=== PATIENT | male | born 1975 | race Caucasian/White ===

== ENCOUNTER 2019-06-05 09:25 | Outpatient (CLI) | payer OTHER ==
[~2019-06-05 09:25] MED LIST: OXYC-306 PO; PANT40TA3 PO
== END 2019-06-05 23:59 | disposition home or self-care (01) ==
LOC: PETCFH 09:25
PROVIDERS: ATTEND Internal Medicine Hematology & Oncology
DX: C81.90 Hodgkin lymphoma, unspecified, unspecified site (principal); R59.0 Localized enlarged lymph nodes; Z21 Asymptomatic human immunodeficiency virus [HIV] infection status
CPT/HCPCS: 78815; A9552

== ENCOUNTER 2019-06-10 10:04 | Inpatient (IN) | payer OTHER ==
[~2019-06-10] VITALS: Ht 175.3 cm; Wt 78.5 kg
[~2019-06-10 10:04] MED LIST changes: -ABAC1TAB14 PO; -AMOX1TAB12 PO; -CHLORHEXIDINE GLUCONATE MOUTHWASH 0.12%, 473ML MM SCH; -CHOL400T2 PO
[2019-06-10] MEDS ORDERED: ACETAMINOPHEN 500 MG TABLET ONE (10:14)
[2019-06-10] MEDS ORDERED: SODIUM CHLORIDE FLUSH 10ML SYR IVF ONE (10:30)
[2019-06-10] MEDS ORDERED: SODIUM CHLORIDE 0.9% 1,000ML IVBOLUS ONE ×2 (10:30→12:00)
[2019-06-10] MEDS ORDERED: ACETAMINOPHEN 500 MG TABLET PO ONE (10:30)
[2019-06-10 10:58] LABS: INTERNATIONAL NORMALIZED RATIO 1.1 (0.93-1.1); PROTHROMBIN TIME 11.5 Seconds (9.6-11.5)
[2019-06-10 10:59] LABS: ALANINE AMINOTRANSFERASE 232 U/L (12-78); ALBUMIN 2.8 g/dL (3.4-5.0); ANION GAP 5 mmol/L (5-15); CALCIUM 7.7 mg/dL (8.5-10.1); CHLORIDE 105 mmol/L (98-107); CREATININE 1.02 mg/dL (0.7-1.3)
[2019-06-10 11:02] LABS: ALKALINE PHOSPHATASE 334 U/L (45-117); BILIRUBIN,TOTAL 0.6 mg/dL (0.2-1.0)
[2019-06-10 11:06] LABS: MEAN CORPUSCULAR HEMOGLOBIN 30.9 pg (27.5-34.5); MEAN CORPUSCULAR HGB CONC 33.7 g/dL (33.2-36.2); MEAN CORPUSCULAR VOLUME 91.9 fL (81-97); MEAN PLATELET VOLUME 8.3 fL (7.4-10.4); PLATELET COUNT 99 x10^3/uL (130-400); RED BLOOD COUNT 4.25 x10^6/uL (4.38-5.82); RED CELL DISTRIBUTION WIDTH 14.6 % (9.4-14.8)
--- NOTE | 2019-06-10 11:11 | NUR ---
Critical lab result received, wbc 1.5. dr. palmer notified. Pt denies any further needs or concerns at this time. Call light in reach.
[2019-06-10 11:25] LABS: MD YES
--- NOTE | 2019-06-10 11:32 | NUR ---
PT PLACED ON NEUTROPENIC PRECAUTIONS, ISO CART OUTSIDE OF ROOM, SIGN ON DOOR CLIP. PT RETURNED FROM IMAGING, MASK IN PLACE FOR TRANSPORT. DENIES ANY FURTHER NEEDS OR CONCERNS AT THIS TIME. CALL LIGHT IN REACH. FLUIDS CONTINUE INFUSING PER MAR.
[2019-06-10 11:35] LABS: <PLATELET ESTIMATE> DECREASED; <PLT MORPHOLOGY> NORMAL PLT MORPH; <RBC MORPHOLOGY> NORMAL; BAND#(MANUAL) 0.12 x10^3/uL; BANDS%(MANUAL) 8 % (0-7); LYMPH#(MANUAL) 0.23 x10^3/uL (1-3.4); LYMPHS% (MANUAL) 15 % (22-44); METAMYELOCYTES# (MANUAL) 0.02 x10^3/uL (0-0); METAMYELOCYTES% (MANUAL) 1 % (0-1); MONOS#(MANUAL) 0.27 x10^3/uL (0.3-2.7); MONOS% (MANUAL) 18 % (2-9); REACTIVE LYMPHS # (MANUAL) 0.05 x10^3/uL (0-0); REACTIVE LYMPHS % (MANUAL) 3 % (0-0); SEG#(MANUAL) 0.83 x10^3/uL (1.8-6.8); SEGS% (MANUAL) 55 % (42-75)
[2019-06-10] MEDS ORDERED: OMNIPAQUE 350 MG/ML, 75ML BOTTLE ONE (11:36)
--- NOTE | 2019-06-10 11:43 | NUR ---
PT CONTINUES TO DENY ANY S/S OF ILLNESS. BP DROPPING, ERP NOTIFIED. NEW ORDERS RECEIEVED. SECOND NS BOLUS HUNG ON PRESSURE BAG. CALL LIGHT IN REACH, PT ON ALL MONITORS. DENIES ANY NEEDS OR CONCERNS.
[2019-06-10] MEDS ORDERED: LACTATED RINGERS 1,000 ML IVBOLUS ONE ×2 (12:30→13:30)
--- NOTE | 2019-06-10 12:30 | NUR ---
PT RESTING IN BED, FAMILY AT BEDSIDE. CALL LIGHT IN REACH. URINAL AT BEDSIDE FOR URINE SAMPLE COLLECTION, PT AWARE OF NEED TO COLLECT, UNABLE TO URINATE AT THIS TIME. DENIES ANY FURTHER NEEDS OR CONCERNS AT THIS TIME.
[2019-06-10] MEDS ORDERED: PIPERACILLIN/TAZO/PMX 3.375GM 50 ML ONE (12:42)
[2019-06-10] MEDS ORDERED: VANCOMYCIN PER PHARMACY MC PRN ×2 (13:00→14:30)
[2019-06-10] MEDS ORDERED: PIPERACILLIN/TAZO/PMX 3.375GM 50 ML IV ONE (13:00)
[2019-06-10] MEDS ORDERED: VANCOMYCIN 1,600 MG in SODIUM CHLORIDE 0.9% 250 ML IV ONE (13:00)
--- NOTE | 2019-06-10 13:22 | NUR ---
BREAK RN: PT LAYING ON GURNEY AWAKE & COMFORTABLE, RESPONDS APPROP TO STAFF, NAD, NO NEEDS AT THIS TIME, US & SO AT BS, CALL LIGHT WITHIN REACH.
[2019-06-10 13:33] LABS: RAPID INFLUENZA A Negative (Negative); RAPID INFLUENZA B Negative (Negative)
[2019-06-10 13:37] LABS: MICROSCOPIC NOT IND
[2019-06-10 13:51] LABS: CULTURE INDICATED? NO
--- NOTE | 2019-06-10 13:51 | NUR ---
PT RESTING IN BED, FAMILY AT BEDSIDE. ERP AT BEDSIDE TO UPDATED PT ON PLAN OF CARE. ALL QUESTIONS ADDRESSED. PT DENIES ANY FUTHER NEEDS OR CONCERNS AT THIS TIME. CALL LIGHT IN REACH.
--- NOTE | 2019-06-10 14:22 | NUR ---
HOSPITALIST AT BEDSIDE. SECOND IV STARTED IN RAC. CALL LIGHT IN REACH. PT DENIES ANY FURTHER NEEDS OR CONCERNS AT THIS TIME.
[2019-06-10] MEDS: NICOTINE 7 MG/24 HR PATCH.TD24 TD SCH (14:30)
[2019-06-10] MEDS: NS + 20MEQ KCL 1,000 ML IV SCH (14:30)
[2019-06-10] MEDS ORDERED: hydrALAzine 20 MG/ML, 1ML IVPush PRN (14:30)
[2019-06-10] MEDS ORDERED: morphine SULFATE 10 MG/ML, 1ML IVPush PRN (14:30)
[2019-06-10] MEDS ORDERED: PROMETHAZINE 25 MG/ML, 1ML IM PRN (14:30)
[2019-06-10] MEDS ORDERED: OXYcodone IR 5MG TABLET PO PRN (14:30)
[2019-06-10] MEDS ORDERED: ONDANSETRON ODT 4 MG PO PRN (14:30)
[2019-06-10] MEDS ORDERED: KETOROLAC 30 MG/1 ML ONE (15:41)
[2019-06-10] MEDS: KETOROLAC 30 MG/1 ML IV PRN (15:41)
--- NOTE | 2019-06-10 15:45 | NUR ---
PT C/O HEADACHE 11/16. GIVEN TORADOL PER SEP. DENIES ANY FURTHER NEEDS OR CONCERNS AT THIS TIME. CALL LIGHT IN REACH. UPDATED ON PLAN OF CARE, VERBALIZES UNDERSTANDING.
[2019-06-10] MEDS ORDERED: NS + 20MEQ KCL 1,000 ML IV ONE (15:50)
--- NOTE | 2019-06-10 17:01 | NUR ---
PT CONTINUES RESTING IN BED. DENIES ANY NEEDS OR CONCERNS AT THIS TIME. CALL LIGHT IN REACH.
[2019-06-10] MEDS ORDERED: NICOTINE 7 MG/24 HR PATCH.TD24 ONE (17:08)
--- NOTE | 2019-06-10 17:33 | NUR ---
report from PIPE Reynaga. pt resting in room. vss. no needs expressed.
--- NOTE | 2019-06-10 17:45 | NUR ---
report to carol ,receiving rn.
[2019-06-10 18:20] VITALS: BP 124/73
[2019-06-10] MEDS ORDERED: VANCOMYCIN 1,500 MG in SODIUM CHLORIDE 0.9% 250 ML IV SCH (18:30)
[2019-06-10] MEDS: ACETAMINOPHEN 325 MG TABLET PO PRN ×2 (18:52→23:00)
[2019-06-10] MEDS ORDERED: PHARMACOKINETIC MONITORING MC PRN (19:00)
[2019-06-10] MEDS ORDERED: ABAC1TAB14 PO (20:39)
[2019-06-10] MEDS: ENOXAPARIN 40 MG/0.4 ML SQ SCH (20:44)
[2019-06-10 20:45] VITALS: BP 113/66
[2019-06-10] MEDS: PIPERACILLIN/TAZO/PMX 4.5GM 100 ML IV SCH (20:45)
[2019-06-10] MEDS ORDERED: MIRTAZAPINE 15 MG TABLET PO SCH (21:00)
[2019-06-10] MEDS ORDERED: [UNRECOGNIZED DRUG - OTHER] PO SCH (21:00)
[2019-06-10] MEDS: PANTOPROZOLE 40MG TABLET PO SCH (21:28)
[2019-06-10] MEDS: TRIUMEQ HOMEMEDPO SCH (21:29)
[2019-06-11] MEDS: NS + 20MEQ KCL 1,000 ML IV SCH ×3 (00:35→17:02)
[2019-06-11 01:50] VITALS: BP 111/79
[2019-06-11] MEDS ORDERED: VANCOMYCIN 1,500 MG in SODIUM CHLORIDE 0.9% 250 ML IV SCH (02:00)
[2019-06-11] MEDS: ACETAMINOPHEN 325 MG TABLET PO PRN ×3 (03:21→12:26)
[2019-06-11 05:05] LABS: MEAN CORPUSCULAR HEMOGLOBIN 31.2 pg (27.5-34.5); MEAN CORPUSCULAR HGB CONC 33.7 g/dL (33.2-36.2); MEAN CORPUSCULAR VOLUME 92.5 fL (81-97); MEAN PLATELET VOLUME 8.3 fL (7.4-10.4); PLATELET COUNT 93 x10^3/uL (130-400); RED BLOOD COUNT 3.65 x10^6/uL (4.38-5.82); RED CELL DISTRIBUTION WIDTH 14.2 % (9.4-14.8)
[2019-06-11 05:09] LABS: ALBUMIN 2.3 g/dL (3.4-5.0); ANION GAP 5 mmol/L (5-15); CHLORIDE 111 mmol/L (98-107)
[2019-06-11 05:14] LABS: ALANINE AMINOTRANSFERASE 200 U/L (12-78); ALKALINE PHOSPHATASE 283 U/L (45-117); BILIRUBIN,TOTAL 0.6 mg/dL (0.2-1.0); CALCIUM 7.3 mg/dL (8.5-10.1); CREATININE 0.94 mg/dL (0.7-1.3); TOTAL PROTEIN 5.1 g/dL (6.4-8.2)
[2019-06-11] MEDS: PIPERACILLIN/TAZO/PMX 4.5GM 100 ML IV SCH ×3 (05:42→21:12)
[2019-06-11] MEDS: PANTOPROZOLE 40MG TABLET PO SCH ×2 (05:42→16:24)
[2019-06-11 06:05] LABS: MD YES
[2019-06-11 06:08] LABS: BANDS%(MANUAL) 6 % (0-7); METAMYELOCYTES# (MANUAL) 0.02 x10^3/uL (0-0); METAMYELOCYTES% (MANUAL) 1 % (0-1); REACTIVE LYMPHS # (MANUAL) 0.05 x10^3/uL (0-0); REACTIVE LYMPHS % (MANUAL) 3 % (0-0)
[2019-06-11 06:09] LABS: LYMPH#(MANUAL) 0.45 x10^3/uL (1-3.4); LYMPHS% (MANUAL) 28 % (22-44); MONOS#(MANUAL) 0.06 x10^3/uL (0.3-2.7); MONOS% (MANUAL) 4 % (2-9); SEG#(MANUAL) 0.93 x10^3/uL (1.8-6.8); SEGS% (MANUAL) 58 % (42-75)
[2019-06-11 06:10] LABS: <PLATELET ESTIMATE> DECREASED; <PLT MORPHOLOGY> NORMAL PLT MORPH; <RBC MORPHOLOGY> NORMAL
[2019-06-11 07:16] VITALS: BP 119/71
[2019-06-11] MEDS: TRIUMEQ HOMEMEDPO SCH (07:55)
[2019-06-11 13:36] VITALS: BP 109/70
[2019-06-11] MEDS: NICOTINE 7 MG/24 HR PATCH.TD24 TD SCH (13:39)
[2019-06-11 14:10] LABS: HCT (SEDRATE) 33.5 % (39.2-51.8)
[2019-06-11] MEDS: IBUPROFEN 600 MG TABLET PO PRN (16:24)
[2019-06-11] MEDS ORDERED: FENTANYL PF 250 MCG/5ML ONE (18:50)
[2019-06-11] MEDS ORDERED: PROPOFOL 10 MG/ML, 20ML ONE (18:50)
[2019-06-11] MEDS ORDERED: MIDAZOLAM 1 MG/ML, 2ML ONE (18:50)
[2019-06-11] MEDS ORDERED: SUCCINYLCHOLINE 20 MG/ML, 10ML ONE (18:51)
[2019-06-11] MEDS ORDERED: LIDOCAINE 1%-EPI 1:100K, 20ML ONE (18:55)
[2019-06-11] MEDS ORDERED: BUPIVACAINE/PF 0.25% ONE (18:55)
[2019-06-11] MEDS ORDERED: EPINEPHRINE 1 MG/ML, 1ML ONE (18:55)
[2019-06-11] MEDS ORDERED: OXYMETAZOLINE NASAL SPRAY 0.05%, 15ML ONE (19:00)
[2019-06-11] MEDS ORDERED: ROCURONIUM 10 MG/ML,10ML ONE (19:04)
[2019-06-11] MEDS ORDERED: LIDOCAINE 1%-EPI 1:100K, 20ML INFIL ONE (19:19)
[2019-06-11] MEDS ORDERED: ONDANSETRON 2MG/ML, 2ML IV PRN (19:30)
[2019-06-11] MEDS ORDERED: ACETAMINOPHEN 325 MG TABLET PO PRN (19:30)
[2019-06-11] MEDS ORDERED: PROMETHAZINE 25 MG/ML, 1ML IV PRN (19:30)
[2019-06-11] MEDS ORDERED: hydrALAzine 20 MG/ML, 1ML IV PRN (19:30)
[2019-06-11] MEDS ORDERED: MEPERIDINE/PF 25MG/ML,1ML IVPush PRN (19:30)
[2019-06-11] MEDS ORDERED: OXYcodone 5 MG/5 ML ORAL.SOL UDC PO PRN (19:30)
[2019-06-11] MEDS ORDERED: HYDROmorphone 2 MG/ML, 1ML IVPush PRN (19:30)
[2019-06-11] MEDS ORDERED: LABETALOL 5MG/ML, 20ML IV PRN (19:30)
[2019-06-11] MEDS ORDERED: FENTANYL PF 100 MCG/2ML IV PRN (19:30)
[2019-06-11] MEDS: ENOXAPARIN 40 MG/0.4 ML SQ SCH (20:00)
[2019-06-11 21:25] VITALS: BP 108/71
[2019-06-11] MEDS: ONDANSETRON 2MG/ML, 2ML IVPush PRN (21:40)
[2019-06-11] MEDS: KETOROLAC 30 MG/1 ML IV PRN (21:40)
[2019-06-12 00:38] VITALS: BP 118/78
[2019-06-12] MEDS: ONDANSETRON 2MG/ML, 2ML IVPush PRN (01:45)
[2019-06-12] MEDS: KETOROLAC 30 MG/1 ML IV PRN ×2 (01:45→17:23)
[2019-06-12] MEDS: NS + 20MEQ KCL 1,000 ML IV SCH ×2 (02:31→13:36)
[2019-06-12 05:25] LABS: ANION GAP 6 mmol/L (5-15); CALCIUM 7.2 mg/dL (8.5-10.1); CHLORIDE 112 mmol/L (98-107); CREATININE 0.96 mg/dL (0.7-1.3)
[2019-06-12 05:29] LABS: MEAN CORPUSCULAR HEMOGLOBIN 31.7 pg (27.5-34.5); MEAN CORPUSCULAR HGB CONC 34.3 g/dL (33.2-36.2); MEAN CORPUSCULAR VOLUME 92.4 fL (81-97); RED BLOOD COUNT 3.78 x10^6/uL (4.38-5.82); RED CELL DISTRIBUTION WIDTH 14.4 % (9.4-14.8)
[2019-06-12] MEDS: IBUPROFEN 600 MG TABLET PO PRN (06:01)
[2019-06-12] MEDS: PANTOPROZOLE 40MG TABLET PO SCH ×2 (06:01→17:12)
[2019-06-12] MEDS: PIPERACILLIN/TAZO/PMX 4.5GM 100 ML IV SCH ×3 (06:01→19:53)
[2019-06-12] MEDS: ACETAMINOPHEN 325 MG TABLET PO PRN ×3 (06:06→23:47)
[2019-06-12 06:07] VITALS: BP 116/62
[2019-06-12 06:12] LABS: MEAN PLATELET VOLUME 8.1 fL (7.4-10.4); PLATELET COUNT 76 x10^3/uL (130-400)
[2019-06-12 06:13] LABS: MD YES
[2019-06-12 06:15] LABS: BANDS%(MANUAL) 8 % (0-7); LYMPH#(MANUAL) 0.45 x10^3/uL (1-3.4); LYMPHS% (MANUAL) 18 % (22-44); MONOS#(MANUAL) 0.18 x10^3/uL (0.3-2.7); MONOS% (MANUAL) 7 % (2-9); SEG#(MANUAL) 1.68 x10^3/uL (1.8-6.8); SEGS% (MANUAL) 67 % (42-75)
[2019-06-12 06:16] LABS: <PLATELET ESTIMATE> DECREASED; <PLT MORPHOLOGY> NORMAL PLT MORPH; <RBC MORPHOLOGY> NORMAL
[2019-06-12] MEDS: TRIUMEQ HOMEMEDPO SCH (07:51)
[2019-06-12 13:22] VITALS: BP 90/54
[2019-06-12] MEDS: NICOTINE 7 MG/24 HR PATCH.TD24 TD SCH (14:26)
[2019-06-12] MEDS ORDERED: GADOTERATE 10 MMOL/20 ML SYR ONE (16:04)
[2019-06-12] MEDS: ENOXAPARIN 40 MG/0.4 ML SQ SCH (19:54)
[2019-06-12 21:30] VITALS: BP 105/65
[2019-06-12] MEDS: CHLORHEXIDINE 15 ML UDC MM SCH (21:44)
[2019-06-12 22:13] VITALS: BP 100/62
[2019-06-13] MEDS: IBUPROFEN 600 MG TABLET PO PRN ×2 (00:01→10:44)
[2019-06-13] MEDS: NS + 20MEQ KCL 1,000 ML IV SCH ×3 (00:48→12:00)
[2019-06-13 02:43] VITALS: BP 106/66
[2019-06-13] MEDS: PIPERACILLIN/TAZO/PMX 4.5GM 100 ML IV SCH (03:01)
[2019-06-13 05:01] LABS: ALANINE AMINOTRANSFERASE 155 U/L (12-78); ANION GAP 6 mmol/L (5-15); BILIRUBIN, DIRECT 0.4 mg/dL (0.1-0.2); CHLORIDE 113 mmol/L (98-107); CREATININE 0.93 mg/dL (0.7-1.3)
[2019-06-13 05:03] LABS: ALKALINE PHOSPHATASE 247 U/L (45-117); BILIRUBIN,TOTAL 0.8 mg/dL (0.2-1.0); TOTAL PROTEIN 4.5 g/dL (6.4-8.2)
[2019-06-13] MEDS: PANTOPROZOLE 40MG TABLET PO SCH (05:28)
[2019-06-13] MEDS ORDERED: AMOXICILLIN/CLAV 875-125MG TABLET PO SCH (08:00)
[2019-06-13 08:35] LABS: MEAN CORPUSCULAR HEMOGLOBIN 31.7 pg (27.5-34.5); MEAN PLATELET VOLUME 9.1 fL (7.4-10.4); PLATELET COUNT 71 x10^3/uL (130-400); RED BLOOD COUNT 3.35 x10^6/uL (4.38-5.82); RED CELL DISTRIBUTION WIDTH 14.4 % (9.4-14.8)
[2019-06-13] MEDS: TRIUMEQ HOMEMEDPO SCH (09:00)
[2019-06-13 09:11] LABS: MD YES
[2019-06-13 09:13] LABS: MONOS#(MANUAL) 0.15 x10^3/uL (0.3-2.7); MONOS% (MANUAL) 7 % (2-9)
[2019-06-13 09:14] LABS: <RBC MORPHOLOGY> NORMAL; BANDS%(MANUAL) 18 % (0-7); LYMPH#(MANUAL) 0.35 x10^3/uL (1-3.4); LYMPHS% (MANUAL) 16 % (22-44); REACTIVE LYMPHS # (MANUAL) 0.04 x10^3/uL (0-0); REACTIVE LYMPHS % (MANUAL) 2 % (0-0); SEG#(MANUAL) 1.25 x10^3/uL (1.8-6.8); SEGS% (MANUAL) 57 % (42-75)
[2019-06-13 09:15] LABS: <PLATELET ESTIMATE> DECREASED; <PLT MORPHOLOGY> NORMAL PLT MORPH
[2019-06-13 09:26] VITALS: BP 119/77
[2019-06-13] MEDS: CHLORHEXIDINE 15 ML UDC MM SCH (09:29)
[2019-06-13] MEDS ORDERED: MULTIVITS,STRESS FORMULA 1 TABLET PO SCH (09:30)
[2019-06-13] MEDS ORDERED: CALCIUM GLUCONATE 4.6 MEQ in SODIUM CHLORIDE 0.9% 50 ML IV ONE (09:30)
[2019-06-13] MEDS: ACETAMINOPHEN 325 MG TABLET PO PRN ×2 (09:40→14:06)
[2019-06-13] MEDS ORDERED: CHOL400T2 PO (10:22)
[2019-06-13] MEDS ORDERED: AMOX1TAB12 PO (10:22)
[2019-06-13 10:47] VITALS: BP 154/64
[2019-06-13] MEDS ORDERED: CHOLECALCIFEROL 400 UNITS TABLET PO SCH (16:30)
[2019-06-13] MEDS ORDERED: ASCORBIC ACID 500 MG TABLET PO SCH (17:00)
== END 2019-06-13 15:51 | disposition home or self-care (01) | DRG 854 ==
LOC: ED 12:47 → EDIP 13:56 → 4WST 17:57
PROVIDERS: ADMIT Internal Medicine; ATTEND Family Medicine
PROC: 0NQT0ZZ Repair Right Mandible, Open Approach (ICD-10-PCS; 2019-06-11)
PROC: 0CDXXZ1 Extraction of Lower Tooth, Multiple, External Approach (ICD-10-PCS; 2019-06-11)
PROC: 0CDWXZ1 Extraction of Upper Tooth, Multiple, External Approach (ICD-10-PCS; 2019-06-11)
PROC: 0NQV0ZZ Repair Left Mandible, Open Approach (ICD-10-PCS; principal; 2019-06-11 19:00)
DX: A41.9 Sepsis, unspecified organism (principal); C81.90 Hodgkin lymphoma, unspecified, unspecified site; D61.818 Other pancytopenia; K02.9 Dental caries, unspecified; F17.210 Nicotine dependence, cigarettes, uncomplicated; K04.7 Periapical abscess without sinus; K05.6 Periodontal disease, unspecified; Z80.1 Family history of malignant neoplasm of trachea, bronchus and lung; Z80.3 Family history of malignant neoplasm of breast; Z87.01 Personal history of pneumonia (recurrent); Z87.442 Personal history of urinary calculi; R50.81 Fever presenting with conditions classified elsewhere; K76.9 Liver disease, unspecified
CPT/HCPCS: 36415; 70100; 70487; 71045; 74183; 76705; 80048; 80053; 80074; 81003; 82248; 83605; 83735; 84100; 84145; 85025; 85610; 85651; 85730; 86140; 86361; 87040; 87400; 87536; 93005; 93306; 99291; G0378; J0171; J0610; J1650; J1885; J2250; J2405; J2543; J2704; J3010; J3370; J3480; J3490; Q9967; A9575; J0330; J7030; J7050; J7120

== ENCOUNTER → 2019-06-10 | Day surgery (SDC) | payer OTHER ==
[~2019-06-10] MED LIST changes: +ABAC1TAB14 PO; +AMOX1TAB12 PO; +CHLORHEXIDINE GLUCONATE MOUTHWASH 0.12%, 473ML MM SCH; +CHOL400T2 PO
== END | disposition home or self-care (01) ==
LOC: OUT 08:39
PROVIDERS: ATTEND Internal Medicine Hematology & Oncology
DX: Z02.9 Encounter for administrative examinations, unspecified (principal)

== ENCOUNTER 2019-06-19 06:14 | Day surgery (SDC) | payer OTHER ==
[~2019-06-19] VITALS: Ht 175.3 cm; Wt 79.3 kg
[~2019-06-19 06:14] MED LIST changes: +ABAC1TAB14 PO; +AMOX1TAB12 PO; +CHOL400T2 PO
[2019-06-19 07:24] VITALS: BP 126/88
[2019-06-19] MEDS ORDERED: CEFAZOLIN PMX 1GM/50ML 50 ML IV ONE (07:30)
[2019-06-19] MEDS ORDERED: SODIUM CHLORIDE 0.9% 1,000 ML IV SCH (07:30)
[2019-06-19] MEDS ORDERED: LIDOCAINE 1%, 20ML ONE (07:49)
[2019-06-19] MEDS ORDERED: LIDOCAINE 1%, 10ML ONE (07:49)
[2019-06-19] MEDS ORDERED: MIDAZOLAM 1 MG/ML, 5ML ONE (08:25)
[2019-06-19] MEDS ORDERED: FLUMAZENIL 0.1 MG/1 ML, 5ML ONE (08:25)
[2019-06-19] MEDS ORDERED: FENTANYL PF 100 MCG/2ML ONE (08:25)
[2019-06-19] MEDS ORDERED: NALOXONE 1 MG/ML, 2ML ONE (08:25)
== END 2019-06-19 11:10 | disposition home or self-care (01) ==
LOC: OUT 06:14
PROVIDERS: ATTEND Internal Medicine Hematology & Oncology
DX: C81.01 Nodular lymphocyte predominant Hodgkin lymphoma, lymph nodes of head, face, and neck (principal); Z87.891 Personal history of nicotine dependence
CPT/HCPCS: 36561; 76937; 77001; 99156; 99157; C1788; C1894; J0690; J1642; J2250; J3010; J7030; J2310

== ENCOUNTER → 2019-06-20 | Outpatient (CLI) | payer OTHER | END | disposition home or self-care (01) | LOC: CARD 12:26 | PROVIDERS: ATTEND Internal Medicine Hematology & Oncology | DX: C81.01 Nodular lymphocyte predominant Hodgkin lymphoma, lymph nodes of head, face, and neck (principal) | CPT/HCPCS: 94060; 94726; 94729 ==